=== PATIENT | female | born 1995 | race African-American/Black ===

== ENCOUNTER 2021-03-30 17:58 | Emergency (ER) | payer OTHER, SELFPAY ==
--- NOTE | ~2021-03-30 | US_ITS ---
EXAMINATION: US OBSTETRICAL ULTRASOUND CLINICAL INFORMATION: 12 weeks with crampy and sharp pains. COMPARISON: None. LMP: 01/02/2021. Gestational age by maternal dates is 12 weeks 3 days. Estimated date of delivery by maternal dates is 10/01/2021. TECHNIQUE: Transabdominal imaging of pelvis is performed FINDINGS: There is a single intrauterine gestational sac and pole. No yolk sac seen. There is no motion. heart beat is not visualized. [place]-rump length measures 2.16 cm corresponding to 8 weeks 6 days. The gestational sac measures 10 weeks 6 days. Right ovary measures 2.4 x 2.2 x 2.1 cm is anechoic cyst measuring 1.7 x 1.5 x 1.6 cm. Left ovary measures 3.7 x 2.3 x 1.6 cm. US/US OB <= 14 weeks fetus IMPRESSION: 1. Single intrauterine just additional slack and pole. pole measurements corresponding to 8 weeks 6 days. 2. However there is no heart beat seen at this time. 3. There is anechoic right ovarian cyst measuring 1.7 cm. Results were notified to HIRO Liu.
[2021-03-30 18:01] VITALS: BP 119/79; PULSE 107; RESP 16; TEMP 36.6; O2SAT 99; BMI 19.3
[2021-03-30 20:14] VITALS: BP 100/52; PULSE 82; RESP 14; TEMP 36.6; O2SAT 97
--- NOTE | 2021-03-30 21:35 | ED.GENADULT ---
HPI - General Adult General Chief complaint: General Medical Stated complaint: abd pain Time Seen by Provider: 03/30/21 21:27 Source: patient Mode of arrival: ambulatory Limitations: no limitations History of Present Illness HPI narrative: Patient is a 25-year-old female who is 12 weeks , LMP 01/02/21, [place] 10/09/21 complaining of a 3 days of lower abdominal pain which is crampy and sharp. She also has back pain. She states she has never felt this kind of pain in her previous pregnancies. She denies bleeding or abnormal vaginal discharge, she denies fevers or any sick contacts. She denies fevers nausea vomiting or diarrhea. She called her veterans contact representative who told her to come to the ED for an ultrasound and labs. Related Data Previous Rx's Medication Instructions Recorded cefuroxime axetil 500 mg PO Q12H 7 Days #14 tab 03/30/21 Allergies Allergy/AdvReac Type Severity Reaction Status Date / Time No Known Allergies Allergy Verified 03/30/21 18:03 [No Known Allergies*] Review of Systems Review of Systems: Yes all other systems are reviewed and are negative [facility] Social History Social History Alcohol intake: never Smoking Status: Current every day smoker Use of substances other than those prescribed or required for medical reasons: Yes Substance Use Type: Marijuana Substance Use Frequency: Occasionally Advance Directives: No Advance Directives Information Provided: Yes Patient : Yes Physical Exam Vital Signs: Vital Signs: Last Vital Signs Temp 97.9 F 03/30/21 20:14 Pulse 82 03/30/21 20:14 Resp 14 03/30/21 20:14 BP 100/52 L 03/30/21 20:14 Pulse Ox 97 03/30/21 20:14 Body Mass Index 19.3 Const: General: cooperative, healthy appearing, comfortable, no acute distress and well developed Orientation/consciousness: patient oriented x3 Limitations: no limitations HENMT: Head: Yes normal to inspection Eyes: General: appearance normal, both eyes and all related structures Neck: Neck: Yes normal visual inspection and Yes full ROM Resp: Effort & Inspection: normal respiratory effort and able to speak in complete sentences GI: Inspection: Yes normal to inspection Palpation (GI): Soft to palpation and Tenderness to palpation present (GI) (lower abdomen and suprapubic) Skin: General skin exam: no rashes or lesions noted Neuro: General: patient oriented x3 Extrem: General: Yes normal to inspection Course Course Course Narrative: Patient is a 25-year-old female who is 12 weeks , LMP 01/02/21, [place] 10/09/21 complaining of a 3 days of lower abdominal pain which is crampy and sharp. She also has back pain. Denies bleeding. Will get basic labs, RH and ultrasound. Reevaluation(s) Reevaluation #1: installation and repair technician advised ultrasound showed no heart beat. Text to Dr. Henderson for next steps. Time: 22:12 Reevaluation #2: Dr. Henderson advised she will call the office to get the patient scheduled for an appointment to review the management options, expected management, medication or surgery. UA+. Patient is stable and will be discharged.. Time: 22:34 Medical Decision Making Lab Data Result diagrams: 03/30/21 22:30 03/30/21 22:31 Labs: Lab Results 03/30/21 03/30/21 03/30/21 Range/Units 22:30 22:31 22:31 WBC 9.7 (4.8-10.8) X10*3/uL RBC 3.84 L (4.20-5.50) X10*6/uL Hgb 10.6 L (12.0-16.0) g/dl Hct 31.7 L (37-47) % MCV 82.6 (80-98) fL MCH 27.6 (27.0-33.0) pg MCHC 33.4 (31.0-35.0) g/dl RDW 17.7 H (11.0-16.0) % Plt Count 215 (160-400) X10*3/uL MPV 9.6 (9.4-12.3) fL Immature Gran % (Auto) 0.2 (0.0-0.4) % Neut % (Auto) 45.2 (45-73) % Lymph % (Auto) 40.3 H (20-40) % [place] % (Auto) 6.4 (2-11) % Eos % (Auto) 6.8 H (0-4) % Baso % (Auto) 1.1 (0-2) % Lymph # (Auto) 3.9 (1.2-4.9) X10*3/uL [place] # (Auto) 0.6 (0.1-1.2) X10*3/uL Eos # (Auto) 0.7 H (0.0-0.4) X10*3/uL Baso # (Auto) 0.1 (0.0-0.2) X10*3/uL Abs Immat Gran (auto) 0.02 (0.00-0.03) X10*3/uL Absolute Neuts (auto) 4.4 (2.0-8.3) X10*3/uL Absolute Nucleated RBC 0.000 (0.0-0.012) X10*3/uL Nucleated RBC % (auto) 0.0 (0.0-0.2) /100WBC Sodium 138 (135-145) mmol/L Potassium 3.7 (3.3-5.1) mmol/L Chloride 106 (96-108) mmol/L Carbon Dioxide 25 (22-29) mmol/L Anion Gap 11 L (12-20) BUN 6 L (9-16) mg/dL Creatinine 0.58 (0.5-1.4) mg/dL Estim Creat Clear Calc 121.0 Estimated GFR > 60 Random Glucose 93 (60-115) mg/dL Calcium 9.4 (8.4-10.2) mg/dL Urine Color Urine Appearance Urine pH (5.0-8.0) Ur Specific [place] (1.005-1.025) Urine Protein (NEG-TRACE) MG/DL Urine Glucose (UA) (NEG) MG/DL Urine Ketones (NEG) MG/DL Urine Blood (NEG) Urine Nitrite (NEG) Ur Leukocyte Esterase (NEG) Urine RBC (0) /HPF Urine WBC (0-4) /HPF Ur Squamous Epith Cells /LPF Urine Bacteria /LPF Urine Mucus /LPF Blood Type O Positive 03/30/21 Range/Units 22:35 WBC (4.8-10.8) X10*3/uL RBC (4.20-5.50) X10*6/uL Hgb (12.0-16.0) g/dl Hct (37-47) % MCV (80-98) fL MCH (27.0-33.0) pg MCHC (31.0-35.0) g/dl RDW (11.0-16.0) % Plt Count (160-400) X10*3/uL MPV (9.4-12.3) fL Immature Gran % (Auto) (0.0-0.4) % Neut % (Auto) (45-73) % Lymph % (Auto) (20-40) % [place] % (Auto) (2-11) % Eos % (Auto) (0-4) % Baso % (Auto) (0-2) % Lymph # (Auto) (1.2-4.9) X10*3/uL [place] # (Auto) (0.1-1.2) X10*3/uL Eos # (Auto) (0.0-0.4) X10*3/uL Baso # (Auto) (0.0-0.2) X10*3/uL Abs Immat Gran (auto) (0.00-0.03) X10*3/uL Absolute Neuts (auto) (2.0-8.3) X10*3/uL Absolute Nucleated RBC (0.0-0.012) X10*3/uL Nucleated RBC % (auto) (0.0-0.2) /100WBC Sodium (135-145) mmol/L Potassium (3.3-5.1) mmol/L Chloride (96-108) mmol/L Carbon Dioxide (22-29) mmol/L Anion Gap (12-20) BUN (9-16) mg/dL Creatinine (0.5-1.4) mg/dL Estim Creat Clear Calc Estimated GFR Random Glucose (60-115) mg/dL Calcium (8.4-10.2) mg/dL Urine Color YELLOW Urine Appearance CLEAR Urine pH 7.5 (5.0-8.0) Ur Specific [place] 1.010 (1.005-1.025) Urine Protein NEG (NEG-TRACE) MG/DL Urine Glucose (UA) NEG (NEG) MG/DL Urine Ketones NEG (NEG) MG/DL Urine Blood NEG (NEG) Urine Nitrite POS H (NEG) Ur Leukocyte Esterase 2+ H (NEG) Urine RBC 1-4 (0) /HPF Urine WBC 5-9 H (0-4) /HPF Ur Squamous Epith Cells 2+ /LPF Urine Bacteria 3+ /LPF Urine Mucus 1+ /LPF Blood Type Imaging Data US: Attestation: I personally reviewed and interpreted this imaging study as follows: My impression: missed Radiologist's impression: [address] [id number] ReportSigned Patient: Tran NievesMR#: [id number]: 1995Acct:[id number]/Sex: 25 / FADM Date: 03/30/21Loc: HO.EDAttending Dr: Ordering Physician: Karoline Liu PA-C Date of Service: 03/30/21 Procedure(s): US OB <= 14 weeks fetus Accession Number(s): [id number] cc: Karoline Liu PA-C~ EXAMINATION: US OBSTETRICAL ULTRASOUND CLINICAL INFORMATION: 12 weeks with crampy and sharp pains. COMPARISON: None. LMP: 01/02/2021. Gestational age by maternal dates is 12 weeks 3 days. Estimated date of delivery by maternal dates is 10/01/2021. TECHNIQUE: Transabdominal imaging of pelvis is performed FINDINGS: There is a single intrauterine gestational sac and pole. No yolk sac seen. There is no motion. heart beat is not visualized. [place]-rump length measures 2.16 cm corresponding to 8 weeks 6 days. The gestational sac measures 10 weeks 6 days. Right ovary measures 2.4 x 2.2 x 2.1 cm is anechoic cyst measuring 1.7 x 1.5 x 1.6 cm. Left ovary measures 3.7 x 2.3 x 1.6 cm. US/US OB <= 14 weeks fetus IMPRESSION: 1. Single intrauterine just additional slack and pole. pole measurements corresponding to 8 weeks 6 days. 2. However there is no heart beat seen at this time. 3. There is anechoic right ovarian cyst measuring 1.7 cm. Results were notified to ER DAVID Liu. Dictated By:JOSE LUIS LOPEZ MDSigned By:<Electronically signed by JOSE LUIS LOPEZ MD in OV>03/30/212220 DD/ 31TD/TT: Rn Physician Office: [facility] Discharge Plan Discharge Clinical Impression: Missed with demise before 20 completed weeks of gestation UTI (urinary tract infection) Qualifiers: Urinary tract infection type: acute cystitis Hematuria presence: without hematuria Qualified Code(s): N30.00 - Acute cystitis without hematuria Patient Disposition: Home, Self-Care Additional Instructions: As discussed, we will call you tomorrow with your appointment to meet with an OBGYN to discuss the options for your missed . Alternatively, you could call your own OBGYN and let them know what happened and schedule a follow-up with them to discuss her options. If you develop heavy bleeding, soaking more than a pad an hour, a fever over 100.4F or your pain it is intolerable and uncontrollable with acetaminophen or naproxen, please call 911 or return to the emergency department. Prescriptions: New cefuroxime axetil 500 mg tablet 500 mg PO Q12H 7 Days Qty: 14 RF: 0 Referrals: Maribel Henderson MD [Physician] - 1 day (missed ) Interventions: ED Discharge Assessment Last Done: 03/30/21 23:06
[2021-03-30 22:40] LABS: MANUAL DIFF FLAG NO
[2021-03-30 22:41] LABS: Basophils Absolute Auto 0.1 X10*3/uL (0.0-0.2); Basophils Percent Auto 1.1 % (0-2); Eosinophils Absolute Auto 0.7 X10*3/uL (0.0-0.4); Eosinophils Percent Auto 6.8 % (0-4); Hematocrit 31.7 % (37-47); Hemoglobin 10.6 g/dl (12.0-16.0); Imm Gran Abs Auto 0.02 X10*3/uL (0.00-0.03); Imm Gran Pct Auto 0.2 % (0.0-0.4); Lymphocytes Absolute Auto 3.9 X10*3/uL (1.2-4.9); Lymphocytes Percent Auto 40.3 % (20-40); Mean Corpuscular HGB Conc 33.4 g/dl (31.0-35.0); Mean Corpuscular Hemoglobin 27.6 pg (27.0-33.0); Mean Corpuscular Volume 82.6 fL (80-98); Mean Platelet Volume 9.6 fL (9.4-12.3); Monocytes Absolute Auto 0.6 X10*3/uL (0.1-1.2); Monocytes Percent Auto 6.4 % (2-11); Neutrophils Absolute Auto 4.4 X10*3/uL (2.0-8.3); Neutrophils Percent Auto 45.2 % (45-73); Platelet Count 215 X10*3/uL (160-400); Red Blood Count 3.84 X10*6/uL (4.20-5.50); Red Cell Distribution Width 17.7 % (11.0-16.0); White Blood Count 9.7 X10*3/uL (4.8-10.8)
[2021-03-30 22:42] LABS: Glucose Urine UA NEG (NEG); Leukocyte Esterase Urine 2+ (NEG); Nitrite Urine POS (NEG); PH 7.5 (5.0-8.0); UACC Culture Trigger YES; Urine Blood NEG (NEG); Urine Ketones NEG (NEG); Urine Protein NEG (NEG-TRACE)
[2021-03-30 22:43] LABS: Appearance Urine CLEAR; Color Urine YELLOW
[2021-03-30 22:51] LABS: Bacteria Urine 3+ /LPF; Mucus Urine 1+ /LPF; Squamous Epithelial Cell Urine 2+ /LPF
[2021-03-30] MEDS: LORazepam 1 MG TABLET PO (22:55)
[2021-03-30 23:12] LABS: Anion Gap 11 (12-20); Blood Urea Nitrogen 6 mg/dL (9-16); Calcium 9.4 mg/dL (8.4-10.2); Carbon Dioxide 25 mmol/L (22-29); Chloride 106 mmol/L (96-108); Estimated Glomerular Filt Rate > 60; Glucose Random 93 mg/dL (60-115); Potassium 3.7 mmol/L (3.3-5.1); Sodium 138 mmol/L (135-145)
== END 2021-03-30 22:55 | disposition home or self-care (01) ==
PROVIDERS: Physician Assistant; Emergency Provider Emergency Medicine; PCP Internal Medicine
DX: O02.1 Missed abortion (principal)
CPT/HCPCS: 36415; 76801; 80048; 81001; 81003; 85025; 86900; 86901; 87086; 87088; 87186; 99284

== ENCOUNTER → 2021-03-31 11:42 | Outpatient (BNVA) | payer OTHER, SELFPAY | PROVIDERS: PCP Internal Medicine; Visit Provider Advanced Practice Midwife | DX: O02.1 Missed abortion (principal) | CPT/HCPCS: 99202 ==

== ENCOUNTER → 2021-04-05 09:49 | Outpatient (BNVA) | payer OTHER, SELFPAY | PROVIDERS: PCP Internal Medicine; Visit Provider Obstetrics & Gynecology ==

== ENCOUNTER 2023-10-31 17:27 | Emergency (ER) | payer OTHER, SELFPAY ==
--- NOTE | ~2023-10-31 | XR_ITS ---
EXAMINATION: XR CHEST CLINICAL INFORMATION: Shortness of breath COMPARISON: None available. TECHNIQUE: Frontal view of the chest was obtained. FINDINGS: No significant abnormality is noted involving the heart, lungs, mediastinum, bony thorax or soft tissues. XR/XR chest 1V IMPRESSION: Normal chest x-ray.
[2023-10-31 17:41] VITALS: BP 145/100; PULSE 97; O2SAT 100
[2023-10-31 17:46] VITALS: BP 128/87; PULSE 98; RESP 18; TEMP 36.7; O2SAT 99; BMI 17.4
--- NOTE | 2023-10-31 17:57 | ECG_ITS ---
Test Reason : DYSPNEA Blood Pressure : / mmHG Vent. Rate : 087 BPM Atrial Rate : 087 BPM P-R Int : 100 ms QRS Dur : 084 ms QT Int : 352 ms P-R-T Axes : 032 071 045 degrees QTc Int : 423 ms Sinus rhythm with short VT Otherwise normal ECG No previous ECGs available Referred By: Generic ED Physician Electronically Signed By:RISHI SALVADOR MD
--- NOTE | 2023-10-31 18:01 | ED.GENADULT ---
HPI - General Adult General Chief complaint: Dyspnea Stated complaint: Low O2 Time Seen by Provider: 10/31/23 20:52 Source: patient Mode of arrival: ambulatory Limitations: no limitations History of Present Illness HPI narrative: 28 yo female with PMH asthma and remote PE not on blood thinners here with c/o L chronic chest wall pain and recent URI with dyspnea (still has day of augmentin) she was at PCP today and sent to ED for work up for PE after she did O2 ambulation trial and found to have tachycardia and lower O2 sat though no one seems to know how low she went. The patient is upset she doesn't like the PCP and states this happened because she needed albuterol. She is very upset she has wasted her day doing all of this. Her PCP never refilled her INH. MD complaint: dyspnea, chest wall pain Onset (ago): week(s) Location: chest Radiation: non-radiation Severity: moderate Quality: stabbing and aching Pain Consistency: intermittent Relieving factors: none Exacerbating factors: movement and other (palpations, breathing) Associated symptoms: cough, loss of appetite (notes has had stress and lost weight over the last 6 months to year) and malaise Treatments prior to arrival: none Related Data Previous Rx's Medication Instructions Recorded cefuroxime axetil 500 mg tablet 500 mg PO Q12H 7 days #14 tabs 03/30/21 albuterol sulfate 90 mcg/actuation 2 puff inhalation QID PRN 10/31/23 aerosol inhaler shortness of breath or wheezing #6.7 grams cyclobenzaprine 10 mg tablet 10 mg PO TID PRN muscle spasm #20 10/31/23 tabs prednisone 20 mg tablet 40 mg (2 x 20 mg) PO DAILY 5 days 10/31/23 #10 tabs Allergies Allergy/AdvReac Type Severity Reaction Status Date / Time No Known Allergies Allergy Verified 03/31/21 11:52 [No Known Allergies*] Review of Systems Review of Systems: Constitutional : No Fever, No Chills ENT/Mouth : No sore throat, No Rhinorrhea, No Swallowing Difficulty Eyes: No Eye Pain, No Swelling, No Redness Cardiovascular : pos Chest Pain, positive SOB, No Orthopnea, no Edema Respiratory : No Cough, No Sputum, No Wheezing, positive dyspnea Gastrointestinal : No Nausea, No Vomiting, No Diarrhea, No abdominal Pain, No Hematochezia, No Melena Genitourinary : No Dysuria, No Urinary Frequency, No Hematuria Musculoskeletal : No joint pain, No Myalgias Skin : No Skin Lesions, No rash Neuro : No Weakness, No Numbness, No Dizziness, No Headache Psych : No Anxiety/Panic, No Depression Heme/Lymph: No Bruising, No Lymphadenopathy Endocrine : No Polyuria, No Polydipsia All other systems reviewed and are negative [facility] Past Medical History Attestation statement: The following information was validated with the patient. Medical History (Updated 11/01/23 @ 00:03 by Nelli Anderson) Pulmonary embolus Asthma Surgical History Hx of section Family History Family History Maternal Grandmother Ovarian cancer Social History Social History Alcohol intake: never Substance Use Type: Marijuana Advance Directives: No Advance Directives Information Provided: No Physical Exam ED Vital Signs: Vital Signs - 24 hr 10/31/23 17:46 10/31/23 21:28 Temperature 98.1 F Pulse Rate 98 93 Respiratory Rate 18 14 Blood Pressure 128/87 140/97 H Pulse Oximetry 99 99 Oxygen Delivery Method Room Air Room Air BMI result Body Mass Index 17.4 Appearance: Alert. Oriented X3. No acute distress. agitated upset and wants to leave Eyes: Pupils equal, round and reactive to light. ENT: Pharynx normal. Neck: Normal inspection. Neck supple. CVS: Normal heart rate and rhythm. Pulses normal. Respiratory: No respiratory distress. Breath sounds normal. Chest: R lateral rib ttp Abdomen: Soft and nontender. Skin: Skin warm and dry. Normal skin color. Normal skin turgor. Extremities: No lower extremity edema. No calf ttp Neuro: Oriented X 3. No motor deficit. No sensory deficit. Course Course Course Narrative: RME: 28 yold female with pmh of PE presents to the ED for to the ED SOB for on month. patietn seen at PCP today had 02 sat drop from 99% to 80% on ambulation. Patietn presently 02 sat 99%. no leg swelling or calf pain. labs and EKG ordered Medications Administered Discontinued Medications Generic Name Dose Route Start Last Admin Trade Name Lee PRN Reason Stop Dose Admin Potassium Chloride 40 meq 10/31/23 21:16 10/31/23 21:30 Potassium Chloride Packet 20 Meq Packet PO 10/31/23 21:17 40 meq ONCE ONE Administration Medical Decision Making Medical Decision Making [facility] Narrative: 28 yo female with PMH of asthma and PE - 4 years ago unsure why this happened here with c/o chronic L rib pain not new and URI symptoms will finish augmentin sent from PCP for tachycardia and lower O2 sats while walking but she cannot tell me what the sats were. She states she just needs inhaler, steroids, pain control and wants to leave. She is upset she is here and has had a long day. Labs, CXR, EKG normal - trop and ddimer negative she is in no resp distress and not hypoxic. At this time will DC home with oral medications and precautions Differential Diagnosis Differential Diagnoses: The differential diagnosis associated with the presentation includes URI, asthma, CWP, VTE - neg ddimer Admission/Observation Consideration of admission/observation: Escalation of care including admission/observation considered patient wants to leave Lab Data [facility] Lab Attestation statement: I reviewed the patient's lab results. 10/31/23 18:21 10/31/23 18:21 Labs: Lab Results 10/31/23 10/31/23 10/31/23 Range/Units 18:21 18:22 19:19 WBC 6.9 (4.8-10.8) X10*3/uL RBC 3.90 L (4.20-5.50) X10*6/uL Hgb 11.2 L (12.0-16.0) g/dl Hct 33.2 L (37.0-47.0) % MCV 85.1 (80.0-98.0) fL MCH 28.7 (27.0-33.0) pg MCHC 33.7 (31.0-35.0) g/dl RDW 16.8 H (11.0-16.0) % Plt Count 209 (160-400) X10*3/uL MPV 10.5 (9.4-12.3) fL Immature Gran % (Auto) 0.1 (0.0-0.4) % Neut % (Auto) 41.4 L (45-73) % Lymph % (Auto) 46.4 H (20-40) % [place] % (Auto) 8.9 (2-11) % Eos % (Auto) 2.3 (0-4) % Baso % (Auto) 0.9 (0-2) % Lymph # (Auto) 3.2 (1.2-4.9) X10*3/uL [place] # (Auto) 0.6 (0.1-1.2) X10*3/uL Eos # (Auto) 0.2 (0.0-0.4) X10*3/uL Baso # (Auto) 0.1 (0.0-0.2) X10*3/uL Abs Immat Gran (auto) 0.01 (0.00-0.03) X10*3/uL Absolute Neuts (auto) 2.8 (2.0-8.3) x10*3/uL Absolute Nucleated RBC 0.000 (0.0-0.012) X10*3/uL Nucleated RBC % (auto) 0.0 (0.0-0.2) /100WBC PT 12.0 (11.1-13.3) SEC INR 1.0 (0.9-1.1) APTT 27.9 (26.0-36.4) SEC D-Dimer High Sensitivty < 150 NG/ML Sodium 140 (135-145) mmol/L Potassium 3.2 L (3.3-5.1) mmol/L Chloride 107 (96-108) mmol/L Carbon Dioxide 24 (22-29) mmol/L Anion Gap 12 (12-20) BUN 10 (9-16) mg/dL Creatinine 0.65 (0.5-1.4) mg/dL Estim Creat Clear Calc 94.9 Estimated GFR > 60 Random Glucose 125 H (60-115) mg/dL Calcium 9.5 (8.4-10.2) mg/dL Total Bilirubin 0.4 (0.0-1.0) mg/dL Direct Bilirubin 0.2 (0.0-0.5) mg/dL AST 45 H (5-31) U/L ALT 23 (0-31) U/L Alkaline Phosphatase 59 (39-117) U/L Troponin I High Sens < 2.7 (<3.5-17.0) ng/L B-Natriuretic Peptide 53 (<100) pg/mL Total Protein 6.4 L (6.5-8.0) g/dL Albumin 3.9 (3.5-5.0) g/dL Lipase 20 (8-78) U/L Independent Interpretation I performed an independent interpretation of an: EKG and Plain X-Ray (normal ) Interpretation: Rate: 87 Rhythm: NSR [place]: normal Normal P waves. Normal JOSE MANUEL. Normal QRS complex. ST T wave : normal no [place]ITT[place], inverted T wave V1-V2 qTC: normal prior studies: no acute ischemia The study has been interpreted contemporaneously by me. . Radiology Impression Discussion of test interpretation with radiology: I have reviewed the radiologist's reading. Prescription Management I considered prescription management with: Other Discharge Plan Discharge Clinical Impression: Shortness of breath, Painful rib, Acute hypokalemia Patient Disposition: Home, Self-Care Instructions: Chest Pain (ED), Asthma (ED), Hypokalemia (ED) Additional Instructions: return for worsening symptoms, pulse ox drops belows 92%, fevers, vomiting or any other concerns. Prescriptions: New cyclobenzaprine 10 mg tablet 10 mg PO TID PRN (Reason: muscle spasm) Qty: 20 0RF prednisone 20 mg tablet 40 mg PO DAILY 5 Days Qty: 10 0RF albuterol sulfate 90 mcg/actuation HFA aerosol inhaler 2 puff inhalation QID PRN (Reason: shortness of breath or wheezing) Qty: 6.7 0RF No Action cefuroxime axetil 500 mg tablet 500 mg PO Q12H 7 Days Qty: 14 0RF Referrals: Gricelda Barboza MD [Physician] - (call to schedule appointment) Titi Chavira MD [Physician] - (primary care doctor) Stand Alone Forms: Work/School Release Interventions: ED Discharge Assessment Last Done: 10/31/23 21:35 Discharge Date/Time: 10/31/23 21:35
[2023-10-31 18:30] LABS: MANUAL DIFF FLAG NO
[2023-10-31 18:31] LABS: Basophils Absolute Auto 0.1 X10*3/uL (0.0-0.2); Basophils Percent Auto 0.9 % (0-2); Eosinophils Absolute Auto 0.2 X10*3/uL (0.0-0.4); Eosinophils Percent Auto 2.3 % (0-4); Hematocrit 33.2 % (37.0-47.0); Hemoglobin 11.2 g/dl (12.0-16.0); Imm Gran Abs Auto 0.01 X10*3/uL (0.00-0.03); Imm Gran Pct Auto 0.1 % (0.0-0.4); Lymphocytes Absolute Auto 3.2 X10*3/uL (1.2-4.9); Lymphocytes Percent Auto 46.4 % (20-40); Mean Corpuscular HGB Conc 33.7 g/dl (31.0-35.0); Mean Corpuscular Hemoglobin 28.7 pg (27.0-33.0); Mean Corpuscular Volume 85.1 fL (80.0-98.0); Mean Platelet Volume 10.5 fL (9.4-12.3); Monocytes Absolute Auto 0.6 X10*3/uL (0.1-1.2); Monocytes Percent Auto 8.9 % (2-11); Neutrophils Absolute Auto 2.8 x10*3/uL (2.0-8.3); Neutrophils Percent Auto 41.4 % (45-73); Platelet Count 209 X10*3/uL (160-400); Red Cell Distribution Width 16.8 % (11.0-16.0); White Blood Count 6.9 X10*3/uL (4.8-10.8)
[2023-10-31 18:49] LABS: Alanine Aminotransferase 23 U/L (0-31); Albumin Level 3.9 g/dL (3.5-5.0); Alkaline Phosphatase 59 U/L (39-117); Anion Gap 12 (12-20); Aspartate Amino Transferase 45 U/L (5-31); Bilirubin Direct 0.2 mg/dL (0.0-0.5); Bilirubin Total 0.4 mg/dL (0.0-1.0); Blood Urea Nitrogen 10 mg/dL (9-16); Calcium 9.5 mg/dL (8.4-10.2); Carbon Dioxide 24 mmol/L (22-29); Chloride 107 mmol/L (96-108); Creatinine Clr Calc Pharmacy 94.9; Estimated Glomerular Filt Rate > 60; Glucose Random 125 mg/dL (60-115); Lipase 20 U/L (8-78); Potassium 3.2 mmol/L (3.3-5.1); Sodium 140 mmol/L (135-145); Total Protein 6.4 g/dL (6.5-8.0)
[2023-10-31 18:52] LABS: B Type Natriuretic Peptide 53 pg/mL (<100)
[2023-10-31 18:59] LABS: Troponin-I High Sensitivity < 2.7 ng/L (<3.5-17.0)
[2023-10-31 19:45] LABS: D Dimer High Sensitivity < 150 NG/ML; Partial Thromboplastin Time 27.9 SEC (26.0-36.4)
[2023-10-31 21:28] VITALS: BP 140/97; PULSE 93; RESP 14; O2SAT 99
[2023-10-31] MEDS: Potassium Chloride Packet 20 MEQ PACKET 40 MEQ PO (21:30)
== END 2023-10-31 21:35 | disposition home or self-care (01) ==
PROVIDERS: Physician Assistant; Emergency Provider Emergency Medicine
DX: R06.02 Shortness of breath (principal); R07.81 Pleurodynia; E87.6 Hypokalemia; Z79.899 Other long term (current) drug therapy
CPT/HCPCS: 36415; 71045; 80048; 80076; 83690; 83880; 84484; 85025; 85379; 85610; 85730; 93005; 99284

== ENCOUNTER → 2023-10-31 17:57 | Outpatient (BNV) | payer OTHER, SELFPAY | PROVIDERS: Emergency Provider Emergency Medicine; Visit Provider Internal Medicine Cardiovascular Disease | DX: R06.00 Dyspnea, unspecified (principal) | CPT/HCPCS: 93010 ==